=== PATIENT | female | born 1970 | race Caucasian/White ===

== ENCOUNTER → 2023-10-25 09:19 | Outpatient (REF) | payer BC, SELFPAY | LOC: WDC 09:19 | PROVIDERS: ATTENDING PHYSICIAN Obstetrics & Gynecology Gynecology; FAMILY PHYSICIAN Nurse Practitioner Adult Health | DX: Z12.31 Encounter for screening mammogram for malignant neoplasm of breast (principal) | CPT/HCPCS: 77063; 77067 ==

== ENCOUNTER → 2024-10-30 09:58 | Outpatient (REF) | payer BC, SELFPAY | LOC: WDC 09:58 | PROVIDERS: ATTENDING PHYSICIAN Obstetrics & Gynecology Gynecology; FAMILY PHYSICIAN Nurse Practitioner Adult Health | DX: Z12.31 Encounter for screening mammogram for malignant neoplasm of breast (principal) | CPT/HCPCS: 77063; 77067 ==

== ENCOUNTER → 2024-11-25 07:57 | Outpatient (REF) | payer BC, SELFPAY | LOC: RAD 07:57 | PROVIDERS: ATTENDING PHYSICIAN Nurse Practitioner Adult Health | DX: Z78.0 Asymptomatic menopausal state (principal) | CPT/HCPCS: 77080 ==

== ENCOUNTER → 2025-02-24 07:55 | Outpatient (REF) | payer BC, SELFPAY | LOC: HWRAD 07:55 | PROVIDERS: ATTENDING PHYSICIAN Obstetrics & Gynecology Gynecology; FAMILY PHYSICIAN Nurse Practitioner Adult Health; REFERRING PHYSICIAN Obstetrics & Gynecology Gynecologic Oncology | DX: N95.0 Postmenopausal bleeding (principal) | CPT/HCPCS: 76830; 76856 ==

== ENCOUNTER → 2025-03-28 08:46 | Outpatient (REF) | payer BC, SELFPAY ==
[2025-03-28 09:50] LABS: Hematocrit 39.2 % (37.0-47.0); Hemoglobin 13.1 g/dL (12.0-16.0); Mean Corp Hgb Conc. 33.4 g/dL (33.0-37.0); Mean Corpuscular Volume 86.0 fL (81.0-99.0); Nucleated Red Blood Cells % 0 %; Platelet Count 202 10^3/uL (130-400); Red Cell Dist. Width 13.5 % (11.5-14.5)
[2025-03-28 10:05] LABS: APTT 27.0 Sec (23.4-35.0); INR 0.99; PT 13.4 Sec (11.4-14.6)
[2025-03-28 10:13] LABS: Urine Character Clear (Clear)
[2025-03-28 10:21] LABS: Urine Squamous Cell 0-2 /LPF (Few); Urine White Cell 0-2 /HPF (0-5)
[2025-03-28 10:53] LABS: ALT (SGPT) 19 U/L (0-35); AST (SGOT) 23 U/L (14-36); Albumin 4.3 g/dl (3.5-5.0); Alkaline Phosphatase 59 U/L (38-126); Blood Urea Nitrogen 20 mg/dl (7-17); Calcium 8.9 mg/dl (8.4-10.2); Carbon Dioxide 30 mmol/L (22-30); Chloride 102 mmol/L (98-107); Glucose 102 mg/dl (70-99); Potassium 4.4 mmol/L (3.5-5.1); Sodium 137 mmol/L (135-145); Total Protein 7.3 g/dl (6.3-8.2); eGFR > 60.00
[2025-03-28 19:41] LABS: CA 125 11.5 U/mL (0-35)
== END ==
LOC: RAD 08:46
PROVIDERS: ATTENDING PHYSICIAN Obstetrics & Gynecology Gynecologic Oncology; FAMILY PHYSICIAN Nurse Practitioner Adult Health
DX: N85.02 Endometrial intraepithelial neoplasia [EIN] (principal); C54.1 Malignant neoplasm of endometrium; C43.9 Malignant melanoma of skin, unspecified
CPT/HCPCS: 36415; 71260; 74177; 80053; 81003; 81015; 84443; 85025; 85610; 85730; 86304; 87086; Q9967

== ENCOUNTER 2025-04-11 05:45 | Day surgery (SDC) | payer BC, SELFPAY ==
[2025-03-28 13:54] VITALS: BMI 42.6
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
[2025-04-11] VITALS (34 sets, daily range): BP systolic 88–137; BP diastolic 51–74; BMI 42.6
[2025-04-11] MEDS: NEURONTIN 300 MG PO (06:49)
[2025-04-11] MEDS: TYLENOL 1000 MG PO (06:49)
[2025-04-11] MEDS: CELEBREX 200 MG PO (06:49)
[2025-04-11] MEDS: HEPARIN 5000 UNITS SC (06:50)
[2025-04-11] MEDS: NORMOSOL-R/PLASMALYTE-A 1000 IV (06:59)
[2025-04-11] MEDS: TRANSDERM-SCOP 1 PATCH TRANSDERM (07:19)
--- NOTE | 2025-04-11 09:07 | OR.RPT ---
Operative Report
Operative Report
Date of Procedure: 04/11/2025
Primary Surgeon: Ted Frank MD
Assisting Surgeon: Kayce Orantes PA-C, Luis Alberto Akhtar, PRODUCTION PATTERN MAKER
Pre-op Diagnosis: Atypical complex endometrial hyperplasia bordering on endometrial Ca
Post-op Diagnosis: Same, Pelvic Adhesions
Procedure Performed:
Robotic Total Laparoscopic Hysterectomy, BSO, Pelvic washings
Robotic assisted laparoscopic intra-abdominal enterolysis
Injection of cervix with ICG dye, bilateral, for mapping and identification of sentinel lymph nodes
Robotic assisted laparoscopic bilateral pelvic sentinel lymphadenectomy
Transverse abdominal plane block
Anesthesia Type: General Endotracheal intubation
Specimen / Cultures: Uterus and cervix, bilateral tubes and ovaries, right and left external iliac sentinel lymph node
Estimated Blood Loss: 50 cc
Complications: None
Operative Findings: Survey of the abdomen reveals upper abdomen including liver spleen stomach diaphragms to be within normal limits, there is band of adhesion between the omentum to the anterior abdominal wall in mid pelvis, and the pelvis uterus
and cervix bilateral tubes and ovaries appear to be within normal limits, there is no ascites or pelvic implants. There is no retroperitoneal enlarged lymph nodes enlargement.
Procedure in detail: This patient was brought to the operating room placed in supine position, general anesthesia was administered she was intubated without any difficulty. Arms were wrapped in foam and placed along the patient's side and protected
across all joints. The patient was placed in dorsal lithotomy position using yellowfin stirrups. The patient was prepped and draped on the abdomen perineum and vagina and upper thighs. Timeout procedure was carried out, she received appropriate
antibiotics and had received DVT prophylaxis. Next Mcrae catheter was placed under sterile conditions for drainage of the bladder. We examined the cervix, anterior lip was grasped with single-tooth tenaculum. Cervix was injected with ICG dye at 3
and 9:00 positions with a total of 4 cc ICG dye injected at 5 mm and 10 mm depth. I was able to dilate the uterus which sounded to 7 cm, uterine manipulator air carrier inspector type with 3.0 cm CONSTANCE ring was inserted into the uterine cavity, vaginal cuff
occluder was insufflated. Attention was turned to the abdomen, Veress needle was inserted just below the left subcostal margin and pneumoperitoneum was created with CO2 gas up to pressure of 15 mmHg. 8 mm XI trocar was inserted just 25 cm cephalad
to symphysis pubis into the peritoneal cavity, inspection with camera revealed adhesions along the midline which were prohibitive initially but we were able to place the right and left upper quadrant 8 mm XI ports as well as 8 mm excised ports in
the right and left lateral abdomen.
Tap block was performed with a total of 60 cc ropivacaine and Decadron mixture injected 2 fingerbreadths below right and left lateral aspect of subcostal margin under direct visualization distributed equally as well as right and left mid abdomen.
Once this was completed the patient was placed in the lithotomy position a 28 degrees, robotic system was docked. We spent approximately 20 minutes performing lysis of adhesion of omental adhesions in order to provide visualization of pelvic
organs. Washings were collected from posterior cul-de-sac. Right and left round ligaments were sealed and divided anterior and posterior leaves of the broad ligament were dissected open, the IP ligaments were isolated and a window was created
between IP ligaments of ureters both IP ligaments were sealed and divided next we used the firefly system and inspected the retroperitoneal spaces. Dewy Rose lymph nodes were excised from the left external iliac vein area as well as right external
iliac artery. There was no injury to adjacent blood vessels nerves or ureter. Next bladder flap was sharply developed and advanced below the cervicovaginal junction here she had also extensive fibrotic adhesions which carefully was sharply
divided. Uterine arteries were sealed after they were skeletonized and divided bilaterally. Uterosacral ligaments remainder of the paracervical tissue was sealed and divided circumferential incision was made over the CONSTANCE ring until the specimen
was detached. We were able to remove uterus and cervix bilateral tubes and ovaries from the vagina. The vaginal apex was closed with [id number] sutures of 0 Vicryl incorporating uterosacral ligaments for support on right and left sides
separately. 3-0 Vicryl suture was used to control small bleeding vessels in the left parametria carefully while considering and visualizing the course of ureter separately. The vaginal cuff otherwise was closed with a running suture of V-Loc
suture starting from right to the left side and a second layer coming back to the right side. Pelvis was irrigated and there was no evidence of bleeding. All laparoscopic ports were removed robotic system was docked and pneumoperitoneum was
released. The skin incisions were closed with 4-0 Monocryl in a subcuticular fashion. There was no indication to close the fascia as all port sites were below 8 mm in size. Mcrae catheter was removed uterine manipulator had already been removed
and the vagina was irrigated and there was no lacerations present. Patient was awakened extubated and returned back to recovery room stable awake and extubated condition counts of laps instruments and needle was correct x 2. I was present and
scrubbed for entire procedure as dictated above
Disposition: To PACU stable awake and extubated
--- NOTE | 2025-04-11 12:56 | W.PN.UPDATE ---
Update Note
Progress Note Update
patient had syncopal episode sitting at edge of bed post op
she is ok, completely A&O x 3
Exam
Lungs CTA
Car RRR
Abd is soft, NT/ND
I assessed her extremeties, and note all ROM is intact no loss of sensation
A/P
check CBC
check right knee X ray
plan to observe in hospital x 24 hrs for now, repeat labs in AM
Ted Frank MD
[2025-04-11 13:19] LABS: Hematocrit 39.6 % (37.0-47.0); Hemoglobin 13.1 g/dL (12.0-16.0); Mean Corp Hgb Conc. 33.1 g/dL (33.0-37.0); Mean Corpuscular Volume 86.7 fL (81.0-99.0); Platelet Count 196 10^3/uL (130-400); Red Cell Dist. Width 13.4 % (11.5-14.5)
--- NOTE | 2025-04-11 14:22 | FALL ---
Description of Fall:
Pt had an assisted fall from the edge of bed. Pt stated she was nauseous. The nurse went to grab an emesis bag and by the time the nurse returned, patient was quickly falling forward at the edge of the bed. The patient's body fell onto the nurse,
and patient's head landed in between the nurse's lap. No head injury to the ground.
Injuries Noted:
R knee touched the ground, small amount of scraped skin. No blood, no open wound. Patient stated mild pain to R knee.
Action Taken:
Dr Frank at bed side to eval patient. CBC, Xray R knee ordered. Telemetry admit orders received.
Name of Provider Notified:
Dr. Frank
[2025-04-11] MEDS: NSS 1000 IV ×2 (14:39→23:38)
[2025-04-11] MEDS: MOTRIN 600 MG PO ×2 (17:22→23:38)
[2025-04-11] MEDS: TYLENOL 650 MG PO ×2 (17:22→23:38)
[2025-04-11] MEDS: LOVENOX 40 MG SC (17:22)
[2025-04-11] MEDS: COLACE 100 MG PO (21:50)
--- NOTE | 2025-04-12 00:50 | PTCARENOTE ---
Pt reports being an assisted fall in recovery. Fall precautions maintained, pt rings appropriately and demonstrates understanding of not getting OOB independently. Reports abd discomfort as tolerable, rates 1/10. Voiding in BR, scant vaginal
spotting, reports pink staining on toilet paper. Call martin w/in reach.
[2025-04-12 03:00] VITALS: BP 110/58
[2025-04-12] MEDS: TYLENOL 650 MG PO (05:54)
[2025-04-12] MEDS: MOTRIN 600 MG PO (05:54)
--- NOTE | 2025-04-12 06:02 | W.PN.GYNONC ---
Today's Communication
-
dc home this morning
Impression / Plan
-
This�is�a�54�year�old�woman�with�endometrial hyperplasia bordering on endometrial ca now POD 1 s/p RA TLH BSO, excision sentinel LN.
She was observed overnight due to syncopal event in PACU
labs were ok, she voided, pain is minimal, she is tolerating diet ok
overninght with no further events
Labs reviewed and ok this AM, dc IV fluids
PT eval
planning to dc home�
Subjective / Interval History
-
POD1
she felt well overnight
gurwinder diet ok
up to bathroom ro void
denies any N/V
Physical Exam
Vital Signs / I&O
Vitals
Temp Pulse Resp BP Pulse Ox
97.9 F 62 16 110/58 94
04/12/25 03:00 04/12/25 03:00 04/12/25 03:00 04/12/25 03:00 04/12/25 03:00
I&O
04/09/25 04/10/25 04/11/25 04/12/25
06:59 06:59 06:59 06:59
Intake Total 2760 / 2760
Balance 2760 / 2760
Physical Exam
General: No Apparent Distress and Comfortable
HEENT: Moist Mucous Membranes
Respiratory: Clear and Non Labored Respirations
Cardiac: S1/S2 and Regular Rhythm
Musculoskeletal: No Clubbing, No Cyanosis and No Edema
Skin: Warm
[2025-04-12 06:57] LABS: Hematocrit 37.2 % (37.0-47.0); Hemoglobin 12.0 g/dL (12.0-16.0); Mean Corp Hgb Conc. 32.3 g/dL (33.0-37.0); Mean Corpuscular Volume 89.0 fL (81.0-99.0); Platelet Count 234 10^3/uL (130-400); Red Cell Dist. Width 13.5 % (11.5-14.5)
[2025-04-12 07:20] LABS: ALT (SGPT) 20 U/L (0-35); AST (SGOT) 24 U/L (14-36); Albumin 3.6 g/dl (3.5-5.0); Alkaline Phosphatase 53 U/L (38-126); Blood Urea Nitrogen 13 mg/dl (7-17); Calcium 8.6 mg/dl (8.4-10.2); Carbon Dioxide 30 mmol/L (22-30); Chloride 108 mmol/L (98-107); Estimated Creatinine Clearance 118 ml/min; Glucose 116 mg/dl (70-99); Potassium 4.0 mmol/L (3.5-5.1); Sodium 140 mmol/L (135-145); Total Protein 6.3 g/dl (6.3-8.2); eGFR > 60.00
[2025-04-12 07:40] VITALS: BP 121/82
[2025-04-12] MEDS: ORETIC 25 MG PO (08:13)
[2025-04-12] MEDS: COLACE 100 MG PO (08:13)
[2025-04-12 09:28] VITALS: BP 116/58; PULSE 63; O2SAT 97
--- NOTE | 2025-04-12 10:15 | CM ---
CM reviewed medical records. Patient is medically ready for home discharge. CM reviewed PT notes. Patient has no skilled PT needs.
PLAN: Home no needs.
--- NOTE | 2025-04-12 10:26 | PTCARENOTE ---
Received pt in bed, ambulated w/o difficultly. Walked halls w/ PT. VSS. Plan for discharge.
== END 2025-04-12 10:26 | disposition home or self-care (01) ==
LOC: SDS 05:45
PROVIDERS: ATTENDING PHYSICIAN Obstetrics & Gynecology Gynecologic Oncology; FAMILY PHYSICIAN Nurse Practitioner Adult Health
DX: N85.01 Benign endometrial hyperplasia (principal); N73.6 Female pelvic peritoneal adhesions (postinfective); N72 Inflammatory disease of cervix uteri; D25.9 Leiomyoma of uterus, unspecified
CPT/HCPCS: 58571; 36415; 73564; 80053; 85027; 86850; 86900; 86901; 88112; 88307; 88309; 88342; 93005; 97161